=== PATIENT | female | born 1975 | race Caucasian/White ===

== ENCOUNTER 2017-07-01 16:55 | Emergency (ER) | payer SELFPAY ==
[~2017-07-01] VITALS: Ht 165.1 cm; Wt 68.0 kg
[2017-07-01] MEDS ORDERED: SODIUM CHLORIDE 0.9% 1,000 ML IV ONE (19:00)
[2017-07-01 19:50] LABS: BASOPHILS % 0.6 % (0.0-2.0); EOSINOPHILS % 1.1 % (0.0-5.0); HEMATOCRIT. 41.3 % (36.0-48.0); HEMOGLOBIN. 14.3 g/dL (12.0-16.0); LYMPHOCYTES % 20.1 % (20.0-50.0); MEAN CORPUSCULAR HEMOGLOBIN 30.3 pg (28.0-32.0); MEAN CORPUSCULAR VOLUME 87.5 fL (81.0-99.0); MEAN PLATELET VOLUME 8.8 fl (7.4-10.4); MONOCYTES % 5.1 % (2.0-8.0); NEUTROPHILS % 73.1 % (40.0-76.0); PLATELET 328 x1000/uL (130-400); RED BLOOD CELL COUNT 4.72 mill/uL (4.2-5.4); RED CELL DISTRIBUTION WIDTH 14.4 % (11.6-14.6)
[2017-07-01 19:53] LABS: INR 1.1; PROTHROMBIN TIME 11.5 sec (9.4-11.6)
[2017-07-01 19:56] LABS: CHLORIDE 109 mEq/L (98-107)
[2017-07-02] MEDS ORDERED: IOHEXOL-350 100 ML BOTTLE ONE (01:09)
[2017-07-02] MEDS ORDERED: SODIUM CHLORIDE 0.9% 500 ML IV ONE (01:15)
[2017-07-02] MEDS ORDERED: LORAZEPAM 0.5MG TABLET PO ONE (01:15)
[2017-07-02] MEDS ORDERED: POTASSIUM CHLORIDE 20MEQ TABLET SR PO ONE (02:00)
[2017-07-02 02:08] VITALS: BP 129/85
== END 2017-07-02 02:25 | disposition home or self-care (01) ==
LOC: ER 17:17
DX: R07.89 Other chest pain (principal); R06.09 Other forms of dyspnea; F41.9 Anxiety disorder, unspecified; I10 Essential (primary) hypertension; D72.829 Elevated white blood cell count, unspecified; Z86.711 Personal history of pulmonary embolism; Z79.02 Long term (current) use of antithrombotics/antiplatelets
CPT/HCPCS: 36415; 71045; 71275; 80053; 83880; 84484; 85025; 85610; 93005; 96360; 96361; 99285; J7030; J7040; Q9967; Z7610